=== PATIENT | female | born 1960 | race Caucasian/White ===

== ENCOUNTER 2023-09-29 09:26 | Emergency (ER) | payer SELFPAY ==
[~2023-09-29] VITALS: Ht 157.5 cm; Wt 81.3 kg
[2023-09-29 09:48] VITALS: BP 168/92; PULSE 88; RESP 18; TEMP 98.2; O2SAT 100
[2023-09-29] MEDS: ACETAMINOPHEN 500 MG TAB PO ONE (10:14)
[2023-09-29] MEDS ORDERED: IBUP-1456 PO (10:41)
[2023-09-29] MEDS ORDERED: METH-1182 PO (10:41)
== END 2023-09-29 10:53 | disposition home or self-care (01) ==
LOC: ER 09:26 → EDBD 09:26 → ER 10:51
DX: S16.1XXA Strain of muscle, fascia and tendon at neck level, initial encounter (principal); R51.9 Headache, unspecified; E11.9 Type 2 diabetes mellitus without complications; Z79.1 Long term (current) use of non-steroidal anti-inflammatories (NSAID); Z79.899 Other long term (current) drug therapy; Z88.2 Allergy status to sulfonamides; V43.52XA Car driver injured in collision with other type car in traffic accident, initial encounter; Y93.89 Activity, other specified; Y92.410 Unspecified street and highway as the place of occurrence of the external cause; Y99.8 Other external cause status
CPT/HCPCS: 70450; 72040